=== PATIENT | male | born 1955 | race Caucasian/White ===

== ENCOUNTER 2017-10-10 08:00 | Emergency (ER) | payer BC, OTHER ==
[2017-10-10 08:04] VITALS: BP 148/96; PULSE 80; RESP 20; TEMP 98
--- NOTE | 2017-10-10 08:38 | ED ---
General Adult HPI - General Chief complaint: Extremity Problem,Nontraumatic Stated complaint: Foot pain Time Seen by Provider: 10/10/17 08:16 Source: patient, RN notes reviewed Mode of arrival: wheelchair Limitations: no limitations - History of Present Illness Initial comments: 62 yo male presents to the ER with cc of right foot pain. Patient states this started a few days ago. Patient states he [facility] they started him on antibiotics and pain medication. They state they didn't x-ray. He states now he is noticing a bulge to the bottom of his foot. She denies any history of this. He denies any falls traumas or injuries to the foot. He was concerned due to the fact that the palm about a foot continued to get worse so he thought that he should be seen. He denies any other injuries at this time. She denies any significant health history. He denies any diabetes.Patient denies any recent fever, chills, shortness of breath, chest pain, back pain, abdominal pain, nausea vomiting, numbness or tingling, dysuria or hematuria, constipation or diarrhea, headaches or visual changes, or any other current symptoms. - Related Data Allergies Allergy/AdvReac Type Severity Reaction Status Date / Time No Known Allergies Allergy Verified 10/10/17 08:04 Review of Systems ROS Statement: Those systems with pertinent positive or pertinent negative responses have been documented in the HPI. ROS Other: All systems not noted in ROS Statement are negative. Past Medical History Past Medical History: Hypertension History of Any Multi-Drug Resistant Organisms: None Reported Past Surgical History: No Surgical Hx Reported Past Psychological History: No Psychological Hx Reported Smoking Status: Never smoker Past Alcohol Use History: None Reported Past Drug Use History: None Reported General Exam - General Exam Comments Initial Comments: General: The patient is awake and alert, in no distress, and does not appear acutely ill. Neck: The neck is supple, there is no tenderness or JVD. Cardiovascular: There is a regular rate and rhythm. No murmur, rub or gallop is appreciated. Respiratory: Lungs are clear to auscultation, respirations are non-labored, breath sounds are equal. No wheezes, stridor, rales, or rhonchi. Musculoskeletal: Sensation intact with 2+ pulses throughout the right lower extremity. Fund motion of right ankle and right foot. His Abscess between second and third toe on the bottom of the right foot. There is associated redness surrounding the area. Full range of motion. Neurological: CN II-XII intact, There are no obvious motor or sensory deficits. Coordination appears grossly intact. Speech is normal. Skin: Skin is warm and dry and no rashes or lesions are noted. Psychiatric: Normal mood and affect. Limitations: no limitations Course Vital Signs 10/10/17 08:02 Temperature 98.0 F Pulse Rate 80 Respiratory 20 Rate Blood Pressure 148/96 O2 Sat by Pulse 100 Oximetry Procedures - Procedures Initial comment: Procedure: Incision and drainage The skin overlying the abscess was prepped with Betadine, and anesthetized with 1% lidocaine without epinephrine. A #11 scalpel was then used to incise the abscess. Some purulent material was then extracted from the lesion. Gauze dressing placed on top, The patient tolerated the procedure well. Medical Decision Making - Medical Decision Making 62-year-old male presents for abscess to the right foot. This time is currently on antibiotics. We'll have him continue this regimen. This time we discussed follow-up we discussed this could get worse he could require admission to the hospital. We did discuss what to watch for. We discussed follow-up return parameters all questions. Patient stated that he understood and he is in agreement this plan. All questions have been answered. At this time Disposition Clinical Impression: Foot abscess, right Disposition: HOME SELF-CARE Condition: Stable Instructions: Abscess (ED) Additional Instructions: Please use medication as discussed. Please follow up with family doctor if symptoms have not improved over the next two days. Please return to the emergency room if your symptoms increase or worsen or for any other concerns. Referrals: Charan Santana MD [Primary Care Provider] - 1-2 days Time of Disposition: 08:37
== END 2017-10-10 08:50 | disposition home or self-care (01) ==
LOC: EC 08:00
DX: L02.611 Cutaneous abscess of right foot (principal)
CPT/HCPCS: 10060; 99283

== ENCOUNTER → 2019-10-14 | Outpatient (CLI) | payer OTHER ==
--- NOTE | 2019-10-14 23:14 | US ---
EXAMINATION TYPE: US kidneys/renal and bladder DATE OF EXAM: 10/14/2019 COMPARISON: NONE CLINICAL HISTORY: R94.4 Abn kidney function studies. EXAM MEASUREMENTS: Right Kidney: 10.0 x 5.3 x 5.8 cm Left Kidney: 10.4 x 5.7 x 5.3 cm Right Kidney: no hydronephrosis or masses seen Left Kidney: no hydronephrosis or masses seen Bladder: wnl Bilateral Jets seen: Yes When scanning right kidney adjacent liver is heterogeneously hyperechoic consistent with diffuse fatt y infiltration. Some increased cortical echogenicity is present in the right kidney. No concerning ma sses seen on images saved. Bladder not greatly distended. IMPRESSION: No hydronephrosis noted bilaterally.
== END | disposition home or self-care (01) ==
LOC: RADUSMAIN 17:11
PROVIDERS: ATTEND Internal Medicine
DX: R94.4 Abnormal results of kidney function studies (principal)
CPT/HCPCS: 76770

== ENCOUNTER → 2024-08-27 | Outpatient (CLI) | payer MEDICARE, BC ==
--- NOTE | 2024-08-27 11:35 | US ---
EXAMINATION TYPE: US carotid duplex BILAT DATE OF EXAM: 08/27/2024 COMPARISON: NONE CLINICAL INDICATION: Male, 69 years old with history of [id number] CORONARY ARTERY DISEASE; Additional History: .... TECHNIQUE: Grayscale, color Doppler and spectral Doppler evaluation of the bilateral carotid systems and vertebral arteries. Indirect Doppler criteria was utilized. FINDINGS: EXAM MEASUREMENTS: RIGHT: Peak Systolic Velocity (PSV) cm/sec ----- Right CCA: 100 ----- Right ICA: 97.4 ----- Right ECA: 114 ICA/CCA ratio: 1.0 RIGHT: End Diastole cm/sec ----- Right CCA: 22.1 ----- Right ICA: 33.1 ----- Right ECA: 15.6 LEFT: Peak Systolic Velocity (PSV) cm/sec ----- Left CCA: 73.4 ----- Left ICA: 110 ----- Left ECA: 114 ICA/CCA ratio: 1.5 LEFT: End Diastole cm/sec ----- Left CCA: 15.6 ----- Left ICA: 37.4 ----- Left ECA: 18.3 VERTEBRALS (direction of flow): Right Vertebral: Antegrade Left Vertebral: Antegrade Rhythm: Normal Color Doppler imaging shows patency with blood flow throughout the carotid artery. Spectral waveforms are within normal limits. IMPRESSION: Right: Less than 50% stenosis of the carotid bifurcation. Normal (no stenosis)=ICA PSV < 125 cm/s: ra meaghan < 2.0: ICA EDV<40 cm/s. Left: Less than 50% stenosis of the carotid bifurcation. Normal (no stenosis)=ICA PSV < 125 cm/s: rat io < 2.0: ICA EDV<40 cm/s. Criteria for Assigning % of Stenosis / Diameter reduction (Estimation based on the indirect measurements of the internal carotid artery velocities (ICA PSV). 1. Normal (no stenosis)=ICA PSV < 125 cm/s: ratio < 2.0: ICA EDV<40 cm/s. 2. Less than 50% stenosis=ICA PSV < 125 cm/s: ratio < 2.0: ICA EDV<40 cm/s. 3. 50 to 69% stenosis=ICA PSV of 125 to 230 cm/s: ration 2.0 ? 4.0: ICA EDV 40-100 cm/s. 4. Greater than 70% stenosis to near occlusion= ICA PSV > 230 cm/s: ratio > 4.0: ICA EDV > 100 cm/s. 5. Near occlusion= ICA PSV velocities may be low or undetectable: variable ratio and ICA EDV. 6. Total occlusion=unable to detect flow. [facility], , 08/27/2024 11:32 AM
--- NOTE | 2024-08-27 13:11 | CA ---
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 [place] [facility] ART W U ICD-10 Codes: Patient History: HTN, HYPERCHOLESTEROLEMIA Medications: BISOPROLOL, LISINOPRIL, ATORVASTATIN, VIT D3, ASA Meds past 24 hrs: Pretest Chest Pain: STRESS TEST Stan Protocol Exercise Duration (min:sec): 08:[address] Depressions (mm): Angina Score: Mauro Score: Resting HR (bpm): 82 Peak HR (bpm): 158 Resting BP (mmHg): 156 / 97 Peak BP (mmHg): 205 / 85 MPHR: 153 Target HR: 130 % MPHR: 103 METS: 9.7 Total Dose: Peak Dose: Atropine: Double Product: 93509 BP Response: Stress Termination: Stress Symptoms: NO SYMPTOMS Stress Summary: ECG ANALYSIS Resting ECG: Stress ECG: CONCLUSIONS Excellent exercise tolerance Normal electrocardiogram stress test Dr. Archie Saha MD (Electronically Signed) Final Date: 27 August 2024 13:10
--- NOTE | 2024-08-29 05:10 | NM ---
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 TECHNIQUE: After the intravenous administration of 7.77 mCi Tc 99m Sestamibi - Rest images obtained 55 minutes post injection. The patient exercised using a TONI protocol and 1 minute prior to peak exercise was injected with 25.7 mCi Tc 99m Sestamibi - Stress images obtained 20 minutes post injecti on. FINDINGS: Review of stress and rest SPECT images demonstrates no distinct perfusion abnormality. Gated analysi s shows normal wall motion with an estimated left ventricular ejection fraction of 59 %. IMPRESSION: No scintigraphic evidence for reversible ischemia [facility], , 08/29/2024 5:07 AM
== END | disposition home or self-care (01) ==
LOC: RADNMMAIN 08:29
PROVIDERS: ATTEND Internal Medicine
DX: I25.119 Atherosclerotic heart disease of native coronary artery with unspecified angina pectoris (principal); I65.23 Occlusion and stenosis of bilateral carotid arteries; E78.00 Pure hypercholesterolemia, unspecified; I10 Essential (primary) hypertension
CPT/HCPCS: 93017; 93880; 78452; A9500